=== PATIENT | male | born 1925 | race Caucasian/White ===

== ENCOUNTER → 2016-08-01 | Outpatient (CLI) | payer MEDICARE, BC ==
--- NOTE | 2016-08-01 16:31 | RADRPT ---
PROCEDURE: XR left knee. CLINICAL INDICATION: Knee pain TECHNIQUE: AP weightbearing, PA weightbearing, lateral weightbearing and sunrise views are availa ble for review. COMPARISON: None available FINDINGS: There is mild osteoarthrosis involving the patellofemoral compartment. This is associated with osteo phytosis. The osseous structures are otherwise normal in mineralization, architecture and alignment. No fract ures are identified. No osseous lesions are identified. The soft tissues are unremarkable. IMPRESSION: Mild osteoarthrosis involving the patellofemoral compartment. RPTAT: [facility] .Sajan Taveras MD, Date Time Electronically viewed and signed by .Sajan Taveras MD, on 08/01/2016 16:31 .B/
== END | disposition home or self-care (01) ==
LOC: HKI 14:31
PROVIDERS: ATTEND Orthopaedic Surgery
DX: M17.12 Unilateral primary osteoarthritis, left knee (principal); M25.562 Pain in left knee
CPT/HCPCS: 20610; 73564; G0463; J1030